=== PATIENT | male | born 2000 | race Caucasian/White ===

== ENCOUNTER 2020-12-13 12:47 | Emergency (ER) | payer BC ==
[2020-12-13 17:14] LABS: SARS-CoV-2 PCR by NAA DETECTED (NotDetected)
== END 2020-12-13 13:33 | disposition home or self-care (01) ==
LOC: ERS 12:47
DX: U07.1 COVID-19 (principal)
CPT/HCPCS: 87635; 99284; U0003; U0005

== ENCOUNTER 2021-10-20 13:35 | Emergency (ER) | payer BC ==
[2021-10-20] MEDS ORDERED: Diazepam 5 MG TAB ONE (14:27)
[2021-10-20] MEDS ORDERED: Lidocaine 1% PF 5 ML VIAL ONE (14:28)
[2021-10-20] MEDS ORDERED: Lidocaine 1% w/Epinephrine 1:100K 20 ML VIAL ONE (14:29)
== END 2021-10-20 16:20 | disposition home or self-care (01) ==
LOC: ERS 13:35
DX: L05.01 Pilonidal cyst with abscess (principal); L03.317 Cellulitis of buttock; F17.210 Nicotine dependence, cigarettes, uncomplicated
CPT/HCPCS: 10080